=== PATIENT | female | born 1940 | race Caucasian/White ===

== ENCOUNTER → 2016-09-06 | Day surgery (SDC) | payer MEDICARE, OTHER ==
[~2016-09-06] VITALS: Ht 166.4 cm
[~2016-09-06] MED LIST: ASPIRIN LO-DOSE81 MG PO; CALCIUM 600 +1 EA12 PO; CHOLEST OFF450 MG PO; CYMBALTA30 MG PO; ENTOCORT 3 MG3 MG PO; FEOSOL325 MG PO; FISH OIL 1,2001 EAC1 PO; LYRICA 75MG CAP75 MG PO; NORVASC5 MG PO; PRILOSEC20 MG PO; THERAGRAN-M1 TAB PO; VITAMIN D1000 UNIT PO
== END | disposition disaster alternative care site (69) ==
LOC: GPOC 09-04 13:00 → GEND 07:27 → GPOC 07:30
PROC: 0DB98ZX Excision of Duodenum, Via Natural or Artificial Opening Endoscopic, Diagnostic (ICD-10-PCS; principal; 2016-09-06)
PROC: 0DB58ZX Excision of Esophagus, Via Natural or Artificial Opening Endoscopic, Diagnostic (ICD-10-PCS; 2016-09-06)
PROC: 0DB68ZX Excision of Stomach, Via Natural or Artificial Opening Endoscopic, Diagnostic (ICD-10-PCS; 2016-09-06)
PROC: 0DBH8ZZ Excision of Cecum, Via Natural or Artificial Opening Endoscopic (ICD-10-PCS; 2016-09-06)
PROC: 0DBE8ZZ Excision of Large Intestine, Via Natural or Artificial Opening Endoscopic (ICD-10-PCS; 2016-09-06)
DX: D12.0 Benign neoplasm of cecum (principal); K29.70 Gastritis, unspecified, without bleeding; K20.9 Esophagitis, unspecified; K52.839 Microscopic colitis, unspecified; K64.8 Other hemorrhoids; I10 Essential (primary) hypertension; M19.90 Unspecified osteoarthritis, unspecified site; Z87.19 Personal history of other diseases of the digestive system; Z88.8 Allergy status to other drugs, medicaments and biological substances; Z90.710 Acquired absence of both cervix and uterus; Z98.890 Other specified postprocedural states
CPT/HCPCS: J1100; J2001; J2405; J7030